=== PATIENT | female | born 1965 | race Caucasian/White ===

== ENCOUNTER 2017-09-17 03:39 | Emergency (ER) | payer SELFPAY ==
[~2017-09-17] VITALS: Ht 154.9 cm; Wt 65.0 kg
[2017-09-17 03:43] VITALS: BP 124/63; PULSE 91; RESP 16; TEMP 97.3; O2SAT 98
== END 2017-09-17 05:33 | disposition left against medical advice (07) ==
LOC: NED 03:39
DX: R31.9 Hematuria, unspecified (principal); R10.9 Unspecified abdominal pain; R11.0 Nausea; Z53.21 Procedure and treatment not carried out due to patient leaving prior to being seen by health care provider
CPT/HCPCS: 99281